=== PATIENT | female | born 1965 | race Caucasian/White ===

== ENCOUNTER 2016-08-06 08:11 | Day surgery (SDC) | payer MEDICARE, MEDICAID ==
[~2016-08-06] VITALS: Ht 157.5 cm
--- NOTE | 2016-08-14 07:37 | OR ---
ADMIT: 08/06/2016 RM/LOC: [facility] MR#: [id number] [id number] [place], [place] [address] PE[place] DELGADO [address] [address] Operative/Delivery Room Report SEX: F AGE: 50 : 1965 SURGERY DATE: 08/06/2016 SURGEON: Freya Juarez MD STEM ROLLER OPERATOR: None. PREOPERATIVE DIAGNOSES: 1. Cervical spondylosis. 2. Chronic daily headache. 3. Cervicalgia. POSTOPERATIVE DIAGNOSES: 1. Cervical spondylosis. 2. Chronic daily headache. 3. Cervicalgia. OPERATION: Bilateral C2-C3 medial branch block. INDICATION FOR PROCEDURE: The patient is a pleasant female with history of chronic daily headache secondary to above mentioned diagnoses, comes here for planned cervical medial branch block. ANESTHESIA: Local without sedation. ESTIMATED BLOOD LOSS: Zero. COMPLICATIONS: None immediately evident. DESCRIPTION OF PROCEDURE: After the patient was seen in the preoperative area, vital signs were taken prior to the procedure. The risks, benefits, and alternative therapies were discussed at length. Patient consent was obtained and updated. The patient was taken to Fluoroscopy Suite and placed on the fluoroscopy table in the prone position. Pressure points were padded to comfort., monitor applied, and a timeout performed. Next, the patient's jaw was turned to the left side. The patient was monitored throughout the procedure. The patient's cervical area was then prepped and draped in a sterile pattern using ChloraPrep. C-arm fluoroscopy was then brought in to identify the C2-C3 junction and C3 waist on the right side. A 22- gauge curved-tip spinal needle was then advanced and made contact with the C2- C3 junction and C3 waist on the right side. Then we put in Isovue-300 to ADMIT: 08/06/2016 RM/LOC: [facility] MR#: [id number] [id number] [place], [place] [address] PEY[place] DELGADO [facility] [place] [address] Operative/Delivery Room Report SEX: F AGE: 50 : 1965 confirm the placement. Then I injected 1 ml of solution consisting of 5 mg of dexamethasone with 0.25% bupivacaine distributed at each level. Then I moved on to the left side and repeated the same procedure. On examination ten minutes after the procedure, the patient had 80% pain relief and range of motion was full at the neck. FOLLOWUP: We will see the patient back for a second set of procedure in one week. Edit: 08/07/2016 0835 ced Juarez MD/ kiera JOB #: [id number] CC: Freya Juarez, Attending Physician Courtney Rodriges, Family Physician
== END 2016-08-06 09:50 | disposition home or self-care (01) ==
LOC: SSS 08:11
PROC: 3E0U33Z Introduction of Anti-inflammatory into Joints, Percutaneous Approach (ICD-10-PCS; principal; 2016-08-06)
PROC: BR14ZZZ Fluoroscopy of Cervical Facet Joint(s) (ICD-10-PCS; principal; 2016-08-06)
PROC: 3E0U3BZ Introduction of Anesthetic Agent into Joints, Percutaneous Approach (ICD-10-PCS; principal; 2016-08-06)
DX: G89.29 Other chronic pain (principal); M47.812 Spondylosis without myelopathy or radiculopathy, cervical region; G43.709 Chronic migraine without aura, not intractable, without status migrainosus; G25.81 Restless legs syndrome; Z88.0 Allergy status to penicillin; Z88.5 Allergy status to narcotic agent; Z88.8 Allergy status to other drugs, medicaments and biological substances; Z79.899 Other long term (current) drug therapy; Z90.49 Acquired absence of other specified parts of digestive tract; Z90.710 Acquired absence of both cervix and uterus; Z98.890 Other specified postprocedural states

== ENCOUNTER 2016-08-20 08:22 | Emergency (ER) | payer MEDICARE, MEDICAID ==
--- NOTE | 2016-09-19 21:14 | ER ---
ADMIT: 08/20/2016 RM/LOC: ER [facility] MR#: [id number] [address] [address] [place]GADO [address] [place] [address] Emergency Room Report SEX: F AGE: 50 : 1965 DATE: 08/20/2016 This 50-year-old female comes to the Emergency Department with several days worth of intermittent headache. These symptoms are typical migraine. See T- sheet for remainder of history and physical. The patient was given ketorolac, Phenergan, and diphenhydramine injections as she refused an IV saying that only treat her anxiety. She is discharged improved. DIAGNOSIS: Headache. Instructed to follow up this coming week with her primary doctor. Osmar Mays MD/ kiera JOB #: [id number] CC: Osmar Mays MD, Attending Physician Courtney Rodriges MD, Family Physician
== END 2016-08-20 10:10 | disposition home or self-care (01) ==
LOC: ER 08:22
DX: R51 Headache (principal); I10 Essential (primary) hypertension; F32.9 Major depressive disorder, single episode, unspecified; Z90.49 Acquired absence of other specified parts of digestive tract; Z88.0 Allergy status to penicillin; Z88.5 Allergy status to narcotic agent

== ENCOUNTER 2016-08-27 08:06 | Day surgery (SDC) | payer MEDICARE, MEDICAID ==
[~2016-08-27] VITALS: Ht 157.5 cm; Wt 108.3 kg
--- NOTE | 2016-08-28 08:09 | OR ---
ADMIT: 08/27/2016 RM/LOC: [facility] MR#: [id number] [facility] [address] [place] DELGADO [address] [place] [address] Operative/Delivery Room Report SEX: F AGE: 50 : 1965 SURGERY DATE: 08/27/2016 SURGEON: Freya Juarez MD TECHNICAL APPLICATIONS SPECIALIST: None. PREOPERATIVE DIAGNOSES: 1. Cervical spondylosis. 2. Cervicalgia. 3. Chronic daily headache. POSTOPERATIVE DIAGNOSES: 1. Cervical spondylosis. 2. Cervicalgia. 3. Chronic daily headache. OPERATION: Bilateral C2-C3 medial branch block. INDICATION FOR PROCEDURE: The patient is a pleasant female with history of chronic daily headache secondary to above mentioned diagnoses, comes here for planned cervical C2 and C3 medial branch block. This is #2 in series of 2. ANESTHESIA: Local without sedation. ESTIMATED BLOOD LOSS: Zero. COMPLICATIONS: None immediately evident. DESCRIPTION OF PROCEDURE: After the patient was seen in the preoperative area, vital signs were taken prior to the procedure. The risks, benefits, and alternative therapies were discussed at length. Patient consent was obtained and updated. The patient was taken to Fluoroscopy Suite and placed on the fluoroscopy table in the prone position. Pressure points were padded to comfort., monitor applied, and a timeout performed. Next, the patient's jaw was turned to the right side. The patient was monitored throughout the procedure. The patient's cervical area was then prepped and draped in a sterile pattern using ChloraPrep. C-arm fluoroscopy was then brought in to identify the C2-C3 junction, C3 waist on the left. A ADMIT: 08/27/2016 RM/LOC: [facility] MR#: [id number] [address] [id number] [place] DELGAD[address] [place] [address] Operative/Delivery Room Report SEX: F AGE: 50 : 1965 22-gauge curved-tip spinal needle was then advanced and made contact with the C2-C3 junction and C3 waist on the left. Then we put in Isovue-300 to confirm the placement. Then I injected 1 ml of solution consisting of 5 mg of dexamethasone with 0.25% bupivacaine. Then I moved on to the right side and repeated the same procedure. On examination twenty minutes after the procedure, the patient had 80% pain relief and range of motion was full at the neck. FOLLOWUP: We will see the patient back for a second set of procedure in one week. Freya Juarez MD/ kiera JOB #: [id number] CC: Freya Juarez, Attending Physician Courtney Rodriges, Family Physician
== END 2016-08-27 10:18 | disposition home or self-care (01) ==
LOC: SSS 08:06
PROC: 3E0T3BZ Introduction of Anesthetic Agent into Peripheral Nerves and Plexi, Percutaneous Approach (ICD-10-PCS; principal; 2016-08-27)
PROC: BR14YZZ Fluoroscopy of Cervical Facet Joint(s) using Other Contrast (ICD-10-PCS; principal; 2016-08-27)
PROC: 3E0T33Z Introduction of Anti-inflammatory into Peripheral Nerves and Plexi, Percutaneous Approach (ICD-10-PCS; principal; 2016-08-27)
DX: G89.29 Other chronic pain (principal); M47.812 Spondylosis without myelopathy or radiculopathy, cervical region; J30.9 Allergic rhinitis, unspecified; G43.809 Other migraine, not intractable, without status migrainosus; G25.81 Restless legs syndrome; G44.40 Drug-induced headache, not elsewhere classified, not intractable; E07.9 Disorder of thyroid, unspecified; Z88.0 Allergy status to penicillin; Z88.6 Allergy status to analgesic agent; Z88.8 Allergy status to other drugs, medicaments and biological substances; Z90.49 Acquired absence of other specified parts of digestive tract

== ENCOUNTER 2016-10-01 06:36 | Day surgery (SDC) | payer MEDICARE, MEDICAID ==
[~2016-10-01] VITALS: Ht 157.5 cm; Wt 109.0 kg
--- NOTE | 2016-10-02 08:05 | OR ---
ADMIT: 10/01/2016 RM/LOC: [facility] MR#: [id number] [address] [place] [id number] [place] J[place]NSON [address] [place] [address] Operative/Delivery Room Report SEX: F AGE: 50 : 1965 SURGERY DATE: 10/01/2016 SURGEON: Freya Juarez MD DIE HOLDER: None. PREPROCEDURE DIAGNOSES: 1. Cervical spondylosis. 2. Chronic daily headaches. POSTPROCEDURE DIAGNOSES: 1. Cervical spondylosis. 2. Chronic daily headaches. PROCEDURE PERFORMED: Right C2 and C3 radiofrequency thermocoagulation. INDICATIONS FOR PROCEDURE: The patient is a pleasant female with history of chronic headaches secondary to above-mentioned diagnosis comes here for planned right-sided C2 and C3 radiofrequency thermocoagulation. ANESTHESIA: Local without sedation. ESTIMATED BLOOD LOSS: Zero. COMPLICATIONS: None immediately evident. DESCRIPTION OF PROCEDURE: After the patient was seen in the preoperative area, vitals signs were taken. Prior to the procedure, the risks, benefits, and alternative therapies were discussed at length. Patient consent was obtained and updated. The patient was taken to the fluoroscopy suite and placed on the fluoroscopy table in the prone position. Pressure points were padded to comfort, monitors applied, and a timeout performed. The patient's jaw was turned to the left side. The patient was monitored throughout the procedure. The patient's cervical areas were then prepped and draped in sterile pattern using ChloraPrep. C-arm fluoroscopy was then brought in to identify C2-C3 junction and C3 waist on the right side. A 20-gauge RFTC ADMIT: 10/01/2016 RM/LOC: [facility] MR#: [id number] [address] [place] [id number] [place] DELGADO [address] [place] [address] Operative/Delivery Room Report SEX: F AGE: 50 : 1965 spinal needle was then advanced and made contact with the C2-C3 junction and C3 waist on the right side. Sensory testing and motor testing were then done. We then proceeded with radiofrequency ablation, which consisted of 80 degrees for 90 seconds. We did an RFTC, right C3, at 3 levels; 1st level at the C3 waist, 2nd at the C2-C3 joint, and 3rd just above the C2-C3 joint line side. The patient tolerated the procedure well and had no immediate complications. The patient was taken to the PACU where she recovered nicely and was sent home in a stable condition. PLAN: Discharge instructions were given, followup scheduled. The patient was discharged home with a shag truck driver. Freya Juarez MD/ kiera JOB #: [id number] CC: Freya Juarez, Attending Physician Darian Sarabia, Family Physician
== END 2016-10-01 08:39 | disposition home or self-care (01) ==
LOC: SSS 06:36
PROC: BR14YZZ Fluoroscopy of Cervical Facet Joint(s) using Other Contrast (ICD-10-PCS; principal; 2016-10-01)
PROC: 3E0T3TZ Introduction of Destructive Agent into Peripheral Nerves and Plexi, Percutaneous Approach (ICD-10-PCS; principal; 2016-10-01)
DX: G89.29 Other chronic pain (principal); M47.812 Spondylosis without myelopathy or radiculopathy, cervical region; R51 Headache; Z88.0 Allergy status to penicillin; Z88.6 Allergy status to analgesic agent; Z79.899 Other long term (current) drug therapy

== ENCOUNTER 2016-11-18 07:51 | Day surgery (SDC) | payer MEDICARE, MEDICAID ==
[~2016-11-18] VITALS: Ht 157.5 cm
--- NOTE | 2016-11-20 08:15 | OR ---
ADMIT: 11/18/2016 RM/LOC: [facility] MR#: [id number] [address] [place] [id number] [place] PINON [address] [place] [address] Operative/Delivery Room Report SEX: F AGE: 50 : 1965 SURGERY DATE: 11/18/2016 SURGEON: Freya Juarez MD MINE UTILITY OPERATOR: None. PREPROCEDURE DIAGNOSES: 1. Cervical spondylosis. 2. Chronic daily headaches. POSTPROCEDURE DIAGNOSES: 1. Cervical spondylosis. 2. Chronic daily headaches. PROCEDURE PERFORMED: Left-sided C2-C3 radiofrequency thermocoagulation. INDICATIONS FOR PROCEDURE: The patient is a pleasant female with history of chronic headaches secondary to cervical spondylosis comes here for planned left-sided C2 and C3 radiofrequency ablation. ANESTHESIA: Local without sedation. ESTIMATED BLOOD LOSS: Zero. COMPLICATIONS: None immediately evident. DESCRIPTION OF PROCEDURE: After the patient was seen in the preoperative area, vitals signs were taken. Prior to the procedure, the risks, benefits, and alternative therapies were discussed at length. Patient consent was obtained and updated. The patient was taken to the fluoroscopy suite and placed on the fluoroscopy table in the prone position. Pressure points were padded to comfort, monitors applied, and a timeout performed. The patient's jaw was turned to the right side. The patient was monitored throughout the procedure. The patient's cervical areas were then prepped and draped in sterile pattern using ChloraPrep. C-arm fluoroscopy was then brought in to identify C2-C3 junction and C3 waist on the left side. A 20-gauge RFTC ADMIT: 11/18/2016 RM/LOC: [facility] MR#: [id number] [address] [place] [id number] [place] DELGAD[address] [place] [address] Operative/Delivery Room Report SEX: F AGE: 50 : 1965 spinal needle was then advanced and made contact with the C2-C3 junction and C3 waist. Sensory testing and motor testing were then done. We then proceeded with radiofrequency ablation, which consisted of 80 degrees for 90 seconds. We did an RFTC, left C3, at 3 levels; 1st level at the C3 waist, 2nd at the C2-C3 joint, and 3rd just above the C2-C3 joint line side. The patient tolerated the procedure well and had no immediate complications. The patient was taken to the PACU where she recovered nicely and was sent home in a stable condition. PLAN: Discharge instructions were given, followup scheduled. The patient was discharged home with a airport shuttle driver. Freya Juarez MD/ kiera JOB #: [id number] CC: Freya Juarez, Attending Physician Courtney Rodriges, Family Physician
== END 2016-11-18 09:42 | disposition home or self-care (01) ==
LOC: SSS 07:51
PROC: BR14YZZ Fluoroscopy of Cervical Facet Joint(s) using Other Contrast (ICD-10-PCS; principal; 2016-11-18)
PROC: 3E0T3TZ Introduction of Destructive Agent into Peripheral Nerves and Plexi, Percutaneous Approach (ICD-10-PCS; principal; 2016-11-18)
DX: G89.29 Other chronic pain (principal); M47.812 Spondylosis without myelopathy or radiculopathy, cervical region; Z88.0 Allergy status to penicillin; Z88.5 Allergy status to narcotic agent; Z88.6 Allergy status to analgesic agent; Z79.899 Other long term (current) drug therapy